=== PATIENT | female | born 1990 | race Two or more races ===

== ENCOUNTER 2024-11-13 11:42 | Outpatient (AMB) | payer MEDICAID, SELFPAY ==
[2024-11-13 11:57] VITALS: BP 112/70; PULSE 68; RESP 17; TEMP 36.7; O2SAT 98; BMI 27.1
--- NOTE | 2024-11-13 11:57 | AMB.OBVISIT ---
Vital Signs 11/13/24 11:57 Height 1.63 m Height Method Stated Weight 71.668 kg Weight Measurement Method Standing Scale BMI 27.1 BP 112/70 Blood Pressure Source Automatic Cuff Blood Pressure Location Right Upper Arm Position Sitting Respiration 17 Pulse 68 Pulse Source Monitor Temp 98.0 F Temp Source Temporal Artery Scan Pulse Oximetry (%) 98 Oxygen Delivery Method Room Air Allergies/Home Meds Allergies & Medications Allergies guava Allergy (Severe, Verified 11/13/24 11:58) Hives bee pollen Allergy (Verified 11/13/24 11:58) Medication Reconciliation prenat.vits,giorgi,kvh-uxsw-pehtf ( Vitamin tablet) 1 tab PO QDAY 02/15/18 [History Confirmed 11/13/24] ferrous sulfate 325 mg (65 mg iron) tablet (iron) 325 mg PO QDAY 05/23/21 [History Confirmed 11/13/24] Intake Visit Data Collection New Patient or Established: Established Patient (seen at [facility] within 3 years) Reason for Visit:: OBI Seen by Clinical Staff ONLY (RN/MA): No 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 Physical Required: No Do You Feel Safe at Home: Yes Authorities Contacted: N/A PCP or OBGYN visit in last 3 months: No Hx Now: Yes Are you currently on any form of Control: No Pain Present Currently: No Pain Scale Used: Rao-Rodas/Numerical Pain scale:: 0 Smoking Status Smoking Status: Never smoker Questionnaires Social History Living Situation History Housing: House Tobacco History Smoking Status: Never smoker Second Hand Smoke Exposure: No Alcohol History Alcohol Intake: Never Domestic Abuse History Do You Feel 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 at Home: Yes 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
--- NOTE | 2024-11-13 12:36 | OBCLNT_ITS ---
Vital Signs 11/13/24 11:57 11/13/24 12:39 Height 1.63 m 1.63 m Height Method Stated Stated Weight 71.668 kg 71.668 kg Weight Measurement Method Standing Scale Standing Scale BMI 27.1 27.1 BP 112/70 112/70 Blood Pressure Source Automatic Cuff Automatic Cuff Blood Pressure Location Right Upper Arm Right Upper Arm Position Sitting Sitting Respiration 17 17 Pulse 68 68 Pulse Source Monitor Monitor Temp 98.0 F 98.0 F Temp Source Temporal Artery Scan Temporal Artery Scan Pulse Oximetry (%) 98 98 Oxygen Delivery Method Room Air Room Air Allergies/Home Meds Allergies & Medications Allergies guava Allergy (Severe, Verified 11/13/24 11:58) Hives bee pollen Allergy (Verified 11/13/24 11:58) Medication Reconciliation prenat.vits,giorgi,lqt-dzuo-tjyyl ( Vitamin tablet) 1 tab PO QDAY 02/15/18 [History Confirmed 11/13/24] ferrous sulfate 325 mg (65 mg iron) tablet (iron) 325 mg PO QDAY 05/23/21 [History Confirmed 11/13/24] Intake Visit Data Collection New Patient or Established: Established Patient (seen at [facility] within 3 years) Reason for Visit:: OBI Seen by Clinical Staff ONLY (RN/MA): No Service Consultant Required: No Do You Feel Safe at Home: Yes Authorities Contacted: N/A PCP or OBGYN visit in last 3 months: No Hx Now: Yes Are you currently on any form of Control: No Pain Present Currently: No Pain Scale Used: Rao-Rodas/Numerical Pain scale:: 0 Smoking Status Smoking Status: Never smoker Questionnaires Covid-19 Vaccine Questionnaire Has patient been vacinated for Covid-19 Have you been vacinated for Covid-19: No PHQ-9 PHQ-2 Over the last 2 weeks, how often have you been bothered by any of the following problems? 1. Little interest or pleasure in doing things: not at all 2. Feeling down, depressed, or hopeless: not at all Total score: 0 PHQ-9 3. Trouble falling or staying asleep, or sleeping too much: Not at all 4. Feeling tired or having little energy: Not at all 5. Poor appetite or overeating: Not at all 6. Feeling bad about yourself - or that you are a failure or have let yourself or your family down: Not at all 7. Trouble concentrating on things, such as reading the newspaper or watching television: Not at all 8. Moving or speaking so slowly that other people could have noticed? - Or the opposite - being so fidgety or restless that you have been moving around a lot more than usual: not at all 9. Thoughts that you would be better off or of hurting yourself in some way: Not at all Total score: 0 If you checked off any problems, how difficult have these problems made it for you to do your work, take care of things at home, or get along with other people?: not difficult at all Source: Developed by Drs. Luis Ramires, Carmen Arroyo, Raymond Ordoñez and colleagues, with an educational parish from [employer]. Depression screen completed yes Social History Living Situation History Marital Status: Lives With: Family Housing: House Tobacco History Smoking Status: Never smoker Second Hand Smoke Exposure: No Alcohol History Alcohol Intake: Never Domestic Abuse History Do You Feel Safe at Home: Yes History of Present Illness HPI Narrative 33 yo for OBI. no Dates/irreg menses. + home test, tires,no N/V. denies existent PMH, denies social habit,no surgery. 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 Past Medical History: No Hx Neurological Disorders, No Hx Breast Cancer, No Hx Cardiac Disorders, No Hx Blood Disorders, Yes Hx Anemia, No Hx Gastrointestinal Disorders, No Hx Renal Disease, No Hx Diabetes Mellitus Type 1 and No Hx Diabetes Mellitus Type 2 OB Initial Visit OB Flowsheet OB Flowsheet Initial Weight: Not Recorded Date -?-?-?-?-?-?--?-?-?-?-?-?- EGA Weight BP Alb Glu CTX Pres Fundal ht FHR Mov Dilation Station Effacement Hx Notes Visit Note 11/13/24 -?-?-?-?-?-?-?-?-?-?-?-?- 9w 6d 71.668 kg 71.668 kg 112/70 112/70 absent unknown 10 145 absent schedule NT scan and sono for dates with mfm. discuss sab precaution, OB panel, NIPT/carrier screen. rtc 4 week obc Menstrual History Menstrual reliability: unknown Flow: normal Menstrual regularity: irregular Monthly: No Age at menarche: 18 On control pills at conception: No OB History : 6 Para: 2 Hx Total # of Abortions (Spontaneous & Elective): 4 # of Living Children: 2 Infection History & Risk Evaluation History of STDs: none HIV risk evaluation: low risk Hepatitis B risk evaluation: low risk Patient or partner has history of Genital Herpes: No Varicella/chicken pox status: unknown Genetic Screening & History Genetic Screening/Teratology Counseling - Includes patient, baby's father, or anyone in either family with: 1. Patient's age 35 years or older as of estimated date of delivery: No 2. Thalassemia (Venezuelan, Guamanian, Mediterranean, or Background); MCV less than 80: No 3. Neural Tube Defect (Meningomyelocele, Spina Bifida, or Anencephaly): No 4. Congenital Heart Defect: No 5. Down Syndrome: No 6. Solitario-Sachs (Ashkenazi Latter-Day, Cajun, Cypriot Bolivian): No 7. An Disease (Ashkenazi Latter-Day): No 8. Familial Dysautonomia (Ashkenazi Latter-Day): No 9. Sickle Cell Disease or Trait (): No 10. Hemophilia or other blood disorders: No 11. Muscular Dystrophy: No 12. Cystic Fibrosis: No 13. [place]'s Chorea: No 14. Mental Retardation/Autism: No 15. Other inherited genetic or chromosomal disorder: No 16. Maternal Metabolic Disorder (EG,TYPE 1 Diabetes, PKU): No 17. Patient or baby's father had a child with defects not listed above: No 18. Recurrent loss or a stillbirth: No 19. Medications (including supplements, vitamins, herbs or otc drugs)/illicit/recreational drugs/alcohol since last menstrual period: No 20. Any other: No Infection History 1. Live with someone with TB or exposed to TB: No 2. Rash or viral illness since last menstrual period: No 3. Hepatitis B,C: No Other (see comments) Source: [employer] Review of Systems Review of Systems Systems Reviewed: All systems reviewed, normal except as documented Exam General Limitations: no limitations General Appearance: alert, in no apparent distress, comfortable, cooperative, healthy appearing, well developed and well groomed Resp Respiratory exam: Present normal lung sounds bilaterally Card Cardiovascular exam: Present regular rate, normal rhythm and normal heart sounds Abdominal Abdominal exam: Present soft and normal bowel sounds Psych Psychiatric exam: Present normal affect and normal mood Office Procedures OB Clinic LOC & Office Proc's Nursing/Assessment Patient Status: Established Patient OB Clinic Nursing Assessment: Medication Reconciliation, Update PMH in EMR and Vital Signs OB Clinic Coordination of Care: Complex Care and Chronic Disease 1-5, Consent,records obtained, informed consent, Education Simp Pt/Fam, Lab and Imaging orders and Staff clarify orders Special Needs: Heart tones Established Patient Charge Established Patient Point Assignment: 130 Established Patient Point Charge: EP Level 4 (120-155) Assessment & Plan Diagnosis / Problem List (1) Encounter for supervision of high risk in first trimester, antepartum: Status: Acute (2) Fundal height low for dates: Status: Acute Qualifiers: Trimester: first trimester Qualified Code(s): O26.841 - Uterine size- date discrepancy, first trimester Plan schedule with MGM for NT scan and dates, OB panel and nipt/carrier screen, hydrate. discuss sab precaution, rtc 4 wk obc Additional Plan Follow Up: 4 Weeks (obc)
[2024-11-13 12:39] VITALS: BP 112/70; PULSE 68; RESP 17; TEMP 36.7; O2SAT 98; BMI 27.1
== END 2024-11-13 12:35 | disposition home or self-care (01) ==
LOC: HODSOBC 11:42
PROVIDERS: Supervising Provider Advanced Practice Midwife; Visit Provider Advanced Practice Midwife
DX: O09.891 Supervision of other high risk pregnancies, first trimester (principal); Z3A.09 9 weeks gestation of pregnancy; O26.841 Uterine size-date discrepancy, first trimester; O09.291 Supervision of pregnancy with other poor reproductive or obstetric history, first trimester
CPT/HCPCS: 99214; G0463

== ENCOUNTER 2024-12-05 08:11 | Outpatient (AMB) | payer MEDICAID, SELFPAY ==
[2024-12-05 08:18] VITALS: BP 118/77; PULSE 75; RESP 17; TEMP 36.5; O2SAT 98; BMI 26.8
--- NOTE | 2024-12-05 08:18 | OBCLNT_ITS ---
Vital Signs 12/05/24 08:18 Height 1.63 m Height Method Stated Weight 71.327 kg Weight Measurement Method Standing Scale BMI 26.8 BP 118/77 Blood Pressure Source Automatic Cuff Blood Pressure Location Right Upper Arm Position Sitting Respiration 17 Pulse 75 Pulse Source Monitor Temp 97.7 F Temp Source Temporal Artery Scan Pulse Oximetry (%) 98 Oxygen Delivery Method Room Air Allergies/Home Meds Allergies & Medications Allergies guava Allergy (Severe, Verified 12/05/24 08:19) Hives bee pollen Allergy (Verified 12/05/24 08:19) Intake Visit Data Collection New Patient or Established: Established Patient (seen at [facility] within 3 years) Reason for Visit:: OBC/LAB RESULTS Seen by Clinical Staff ONLY (RN/MA): No Tv Technician Required: No Do You Feel Safe at Home: Yes Authorities Contacted: N/A PCP or OBGYN visit in last 3 months: Yes Date of Last PCP or OBGYN visit: 11/13/24 Hx Now: Yes Are you currently on any form of Control: No Pain Present Currently: No Pain Scale Used: Rao-Rodas/Numerical Pain scale:: 0 Smoking Status Smoking Status: Never smoker Questionnaires Covid-19 Vaccine Questionnaire Has patient been vacinated for Covid-19 Have you been vacinated for Covid-19: No PHQ-9 PHQ-2 Over the last 2 weeks, how often have you been bothered by any of the following problems? 1. Little interest or pleasure in doing things: not at all 2. Feeling down, depressed, or hopeless: not at all Total score: 0 PHQ-9 3. Trouble falling or staying asleep, or sleeping too much: Not at all 4. Feeling tired or having little energy: Not at all 5. Poor appetite or overeating: Not at all 6. Feeling bad about yourself - or that you are a failure or have let yourself or your family down: Not at all 7. Trouble concentrating on things, such as reading the newspaper or watching television: Not at all 8. Moving or speaking so slowly that other people could have noticed? - Or the opposite - being so fidgety or restless that you have been moving around a lot more than usual: not at all 9. Thoughts that you would be better off or of hurting yourself in some way: Not at all Total score: 0 If you checked off any problems, how difficult have these problems made it for you to do your work, take care of things at home, or get along with other people?: not difficult at all Source: Developed by Drs. Luis Ramires, Carmen Arroyo, Raymond Ordoñez and colleagues, with an educational parish from [employer]. 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 discuss sab precaution, OB panel, NIPT/carrier screen. rtc 4 week obc 12/05/24 -?-?-?-?-?-?-?-?-?-?-?-?- 13w 0d 71.327 kg 118/77 absent unknown 14 145 absent denies sab complaints, no FM no cramps. doing well disc uss + CF screen and gender. OB panel today, sched genetic referal. sab precaution, rtc 4 week [facility] Calculator Estimated Delivery Date Method Current WG Current Estimate 06/12/25 Manual 13w 0d no dates, i rreg menses Notes Visit Date: 12/05/24 Last Updated by: Fartun Londono CNM 12/04: CF+/SMA-, NIPT:neg/male Visit Date: 11/13/24 Last Updated by: Fartun Londono, MAILE 33 yo no dates/irreg menses Office Procedures OB Clinic LOC & Office Proc's Nursing/Assessment Patient Status: Established Patient OB Clinic Nursing Assessment: Medication Reconciliation, Update PMH in EMR and Vital Signs OB Clinic Coordination of Care: Complex Care and Chronic Disease 1-5, Consent,records obtained, informed consent, Education Simp Pt/Fam, Results/Orders obtained and Staff clarify orders Special Needs: Heart tones Established Patient Charge Established Patient Point Assignment: 120 Established Patient Point Charge: EP Level 4 (120-155) Assessment & Plan Diagnosis / Problem List (1) Encounter for supervision of high risk in first trimester, antepartum: Status: Acute Plan Discussed positive CF results. I added genetics referral to her MFM appointment. Patient has an MFM for NT scan December 11. Continue compliance with vitamins. Discussed SAB precautions. Increase fluids and rest. OB panel today. Return in 4 weeks OB check Additional Plan Follow Up: 4 Weeks (obc)
== END 2024-12-05 08:46 | disposition home or self-care (01) ==
LOC: HODSOBC 08:11
PROVIDERS: PCP Advanced Practice Midwife; Referring Provider Advanced Practice Midwife; Supervising Provider Advanced Practice Midwife; Visit Provider Advanced Practice Midwife
DX: O09.891 Supervision of other high risk pregnancies, first trimester (principal); Z3A.13 13 weeks gestation of pregnancy; Z14.1 Cystic fibrosis carrier
CPT/HCPCS: 99214; G0463

== ENCOUNTER 2025-01-02 10:36 | Outpatient (AMB) | payer MEDICAID, SELFPAY ==
[2025-01-02 10:54] VITALS: BP 107/68; PULSE 71; RESP 17; TEMP 36.5; O2SAT 98; BMI 26.9
--- NOTE | 2025-01-02 10:54 | OBCLNT_ITS ---
Vital Signs 01/02/25 10:54 Height 1.63 m Height Method Measured Weight 71.441 kg Weight Measurement Method Standing Scale BMI 26.9 BP 107/68 Blood Pressure Source Automatic Cuff Blood Pressure Location Right Upper Arm Position Sitting Respiration 17 Pulse 71 Pulse Source Monitor Temp 97.7 F Temp Source Temporal Artery Scan Pulse Oximetry (%) 98 Oxygen Delivery Method Room Air Allergies/Home Meds Allergies & Medications Allergies guava Allergy (Severe, Verified 01/02/25 10:56) Hives bee pollen Allergy (Verified 01/02/25 10:56) Medication Reconciliation prenat.vits,giorgi,pcz-paqh-jxjxi ( Vitamin tablet) 1 tab PO QDAY 02/15/18 [History Confirmed 01/02/25] ferrous sulfate 325 mg (65 mg iron) tablet (iron) 325 mg PO QDAY 05/23/21 [History Confirmed 01/02/25] Intake Visit Data Collection New Patient or Established: Established Patient (seen at [facility] within 3 years) Reason for Visit:: OBC Consent obtained for Telemed Visit: No Seen by Clinical Staff ONLY (RN/MA): No Associate Research Scientist Required: No Do You Feel Safe at Home: Yes Authorities Contacted: N/A PCP or OBGYN visit in last 3 months: Yes Date of Last PCP or OBGYN visit: 12/05/24 Hx Now: Yes Are you currently on any form of Control: No Pain Present Currently: No Pain Scale Used: Rao-Rodas/Numerical Pain scale:: 0 Smoking Status Smoking Status: Never smoker Questionnaires Covid-19 Vaccine Questionnaire Has patient been vacinated for Covid-19 Have you been vacinated for Covid-19: No PHQ-9 PHQ-2 Over the last 2 weeks, how often have you been bothered by any of the following problems? 1. Little interest or pleasure in doing things: not at all PHQ-9 8. Moving or speaking so slowly that other people could have noticed? - Or the opposite - being so fidgety or restless that you have been moving around a lot more than usual: not at all Source: Developed by Drs. Luis Ramires, Carmen Arroyo, Raymond Ordoñez and colleagues, with an educational parish from [email or web address]. 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 discuss sab precaution, OB panel, NIPT/carrier screen. rtc 4 week obc 12/05/24 -?-?-?-?-?-?-?-?-?-?-?-?- 14w 6d 71.327 kg 118/77 absent unknown 14 145 absent denies sab complaints, no FM no cramps. doing well disc uss + CF screen and gender. OB panel today, sched genetic referal. sab precaution, rtc 4 week 01/02/25 -?-?-?-?-?-?-?-?-?-?-?-?- 18w 6d 71.441 kg 107/68 absent unknown 18 145 absent No OB complaints. Doing well. Baby is active. Maternal- medicine appointment is January 04. aFP today. Schedule genetics referral. Discussed with father the baby getting the cystic fibrosis screen. SAB precautions and return in 4 weeks OB to [facility]AT[facility] Calculator Estimated Delivery Date Method Current WG Current Estimate 05/30/25 Ultrasound #1 18w 6d Other Estimates 06/12/25 Manual 17w 0d no dates, ir reg menses Notes Visit Date: 01/02/25 Last Updated by: Fartun Londono, MAILE 34 yo . no dates. sono: 12/11/24: 15w5. EDC: 05/30/25. OB panel: O+,abs-, RPR::NR, rub imm, HBSAG-,HIV-,HC-, GX/CT-, , A1: 5.5 Visit Date: 12/05/24 Last Updated by: Fartun Londono CNM 12/04: CF+/SMA-, NIPT:neg/male Visit Date: 11/13/24 Last Updated by: Fartun Londono CNM 33 yo no dates/irreg menses Office Procedures OB Clinic LOC & Office Proc's Nursing/Assessment Patient Status: Established Patient OB Clinic Nursing Assessment: Medication Reconciliation, Update PMH in EMR and Vital Signs OB Clinic Coordination of Care: Complex Care and Chronic Disease 1-5, Consent,records obtained, informed consent, Education Simp Pt/Fam and 4+ Authorizations needed Special Needs: Heart tones Established Patient Charge Established Patient Point Assignment: 130 Established Patient Point Charge: EP Level 4 (120-155) Assessment & Plan Diagnosis / Problem List (1) Encounter for supervision of normal first , second trimester: Status: Acute Plan Father the baby will get cystic fibrosis screen. Maternal- medicine appointment is January 04. Discussed SAB precautions. aFP today. Return in 4 weeks OB check Additional Plan Follow Up: 4 Weeks (obc)
== END 2025-01-02 11:22 | disposition home or self-care (01) ==
LOC: HODSOBC 10:36
PROVIDERS: Supervising Provider Advanced Practice Midwife; Visit Provider Advanced Practice Midwife
DX: Z34.02 Encounter for supervision of normal first pregnancy, second trimester (principal); Z3A.18 18 weeks gestation of pregnancy
CPT/HCPCS: 99214; G0463

== ENCOUNTER 2025-02-03 14:49 | Outpatient (AMB) | payer MEDICAID, SELFPAY ==
--- NOTE | 2025-02-03 15:04 | OBCLNT_ITS ---
Vital Signs 02/03/25 15:05 Height 1.63 m Height Method Stated Weight 73.709 kg Weight Measurement Method Standing Scale BMI 27.7 BP 111/65 Blood Pressure Source Automatic Cuff Blood Pressure Location Left Upper Arm Position Sitting Respiration 16 Pulse 74 Pulse Source Monitor Temp 97.2 F Temp Source Oral Pulse Oximetry (%) 98 Oxygen Delivery Method Room Air Allergies/Home Meds Allergies & Medications Allergies guava Allergy (Severe, Verified 02/03/25 15:05) Hives bee pollen Allergy (Verified 02/03/25 15:05) Medication Reconciliation prenat.vits,giorgi,acu-crbv-rvhom ( Vitamin tablet) 1 tab PO QDAY 02/15/18 [History Confirmed 02/03/25] ferrous sulfate 325 mg (65 mg iron) tablet (iron) 325 mg PO QDAY 05/23/21 [History Confirmed 02/03/25] Intake Visit Data Collection New Patient or Established: Established Patient (seen at [facility] within 3 years) Reason for Visit:: OBC Seen by Clinical Staff ONLY (RN/MA): No Water Safety Teacher Required: No Do You Feel Safe at Home: Yes Authorities Contacted: N/A PCP or OBGYN visit in last 3 months: Yes Date of Last PCP or OBGYN visit: 01/02/25 Hx Now: Yes Are you currently on any form of Control: No Pain Present Currently: No Pain Scale Used: Rao-Rodas/Numerical Pain scale:: 0 Smoking Status Smoking Status: Never smoker Questionnaires Covid-19 Vaccine Questionnaire Has patient been vacinated for Covid-19 Have you been vacinated for Covid-19: No PHQ-9 PHQ-2 Over the last 2 weeks, how often have you been bothered by any of the following problems? 1. Little interest or pleasure in doing things: not at all 2. Feeling down, depressed, or hopeless: not at all Total score: 0 PHQ-9 3. Trouble falling or staying asleep, or sleeping too much: Not at all 4. Feeling tired or having little energy: Not at all 5. Poor appetite or overeating: Not at all 6. Feeling bad about yourself - or that you are a failure or have let yourself or your family down: Not at all 7. Trouble concentrating on things, such as reading the newspaper or watching television: Not at all 8. Moving or speaking so slowly that other people could have noticed? - Or the opposite - being so fidgety or restless that you have been moving around a lot more than usual: not at all 9. Thoughts that you would be better off or of hurting yourself in some way: Not at all Total score: 0 If you checked off any problems, how difficult have these problems made it for you to do your work, take care of things at home, or get along with other p eople?: not difficult at all Source: Developed by Drs. Luis Ramires, Carmen Arroyo, Raymond Ordoñez and colleagues, with an educational parish from [employer]. 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 discuss sab precaution, OB panel, NIPT/carrier screen. rtc 4 week obc 12/05/24 -?-?-?-?-?-?-?-?-?-?-?-?- 14w 6d 71.327 kg 118/77 absent unknown 14 145 absent denies sab complaints, no FM no cramps. doing well disc uss + CF screen and gender. OB panel today, sched genetic referal. sab precaution, rtc 4 week 01/02/25 -?-?-?-?-?-?-?-?-?-?-?-?- 18w 6d 71.441 kg 107/68 absent unknown 18 145 absent No OB complaints. Doing well. Baby is active. Maternal- medicine appointment is January 04. aFP today. Schedule genetics referral. Discussed with father the baby getting the cystic fibrosis screen. SAB precautions and return in 4 weeks OB to 02/03/25 -?-?-?-?-?-?-?-?-?-?-?-?- 23w 3d 73.709 kg 111/65 absent unknown 23 135 active Denies OB complaints. Reports good movement. Denies bleeding, contractions, leaking Discussed AFP today. Genetics appointment for positive carrier screen is pending. Third trimester labs ordered WATSON Calculator Estimated Delivery Date Method Current WG Current Estimate 05/30/25 Ultrasound #1 23w 3d Other Estimates 05/30/25 Ultrasound #2 23w 3d 06/12/25 Manual 21w 4d no dates, irreg menses, final watson: 05/30/25 Notes Visit Date: 01/02/25 Last Updated by: Fartun Londono CNM 34 yo . no dates. sono: 12/11/24: 15w5. EDC: 05/30/25. OB panel: O+,abs-, RPR::NR, rub imm, HBSAG-,HIV-,HC-, GX/CT-, , A1: 5.5 Visit Date: 12/05/24 Last Updated by: Fartun Londono CNM 12/04: CF+/SMA-, NIPT:neg/male Visit Date: 11/13/24 Last Updated by: Fartun Londono CNM 33 yo no dates/irreg menses Office Procedures OB Clinic LOC & Office Proc's Nursing/Assessment Patient Status: Established Patient OB Clinic Nursing Assessment: Medication Reconciliation, Update PMH in EMR and V ital Signs OB Clinic Coordination of Care: Education Complex Pt/Fam, Consent,records obtained, informed consent, Lab and Imaging orders, Results/Orders obtained and Staff clarify orders Special Needs: Heart tones Established Patient Charge Established Patient Point Assignment: 115 Established Patient Point Charge: EP Level 3 (80-115) Assessment & Plan Diagnosis / Problem List (1) Encounter for supervision of normal first , second trimester: Status: Acute (2) High risk , antepartum: Status: Acute Plan Third trimester labs today 2. Discussed AFP. MFM appointment and genetic screening for positive CF is pending. Discussed labor precautions. Increase fluids. Return in 4 weeks OB check Additional Plan Follow Up: 4 Weeks (obc)
[2025-02-03 15:05] VITALS: BP 111/65; PULSE 74; RESP 16; TEMP 36.2; O2SAT 98; BMI 27.7
== END 2025-02-03 15:29 | disposition home or self-care (01) ==
LOC: HODSOBC 14:49
PROVIDERS: Supervising Provider Advanced Practice Midwife; Visit Provider Advanced Practice Midwife
DX: O09.892 Supervision of other high risk pregnancies, second trimester (principal); O28.5 Abnormal chromosomal and genetic finding on antenatal screening of mother; Z3A.23 23 weeks gestation of pregnancy; Z91.030 Bee allergy status; Z91.018 Allergy to other foods
CPT/HCPCS: 99213; G0463

== ENCOUNTER 2025-03-03 14:38 | Outpatient (AMB) | payer MEDICAID, SELFPAY ==
[2025-03-03 14:49] VITALS: BP 118/75; PULSE 71; RESP 17; TEMP 36.6; O2SAT 98; BMI 27.9
--- NOTE | 2025-03-03 14:49 | AMB.OBVISIT ---
Vital Signs 03/03/25 14:49 Height 1.63 m Height Method Stated Weight 74.162 kg Weight Measurement Method Standing Scale BMI 27.9 BP 118/75 Blood Pressure Source Automatic Cuff Blood Pressure Location Right Upper Arm Position Sitting Respiration 17 Pulse 71 Pulse Source Monitor Temp 97.8 F Temp Source Temporal Artery Scan Pulse Oximetry (%) 98 Oxygen Delivery Method Room Air Allergies/Home Meds Allergies & Medications Allergies guava Allergy (Severe, Verified 03/03/25 14:49) Hives bee pollen Allergy (Verified 03/03/25 14:49) Medication Reconciliation prenat.vits,giorgi,zxl-afzt-rzxde ( Vitamin tablet) 1 tab PO QDAY 02/15/18 [History Confirmed 03/03/25] ferrous sulfate 325 mg (65 mg iron) tablet (iron) 325 mg PO QDAY 05/23/21 [History Confirmed 03/03/25] Intake Visit Data Collection New Patient or Established: New Patient not seen in past 3 years at [facility] (considered New) Reason for Visit:: OBC Seen by Clinical Staff ONLY (RN/MA): No Net Front End Developer Required: No Do You Feel Safe at Home: Yes Authorities Contacted: N/A PCP or OBGYN visit in last 3 months: Yes Date of Last PCP or OBGYN visit: 02/03/25 Hx Now: Yes Are you currently on any form of Control: No Pain Present Currently: Yes Pain Location: Abdomen Pain Scale Used: Rao-Rodas/Numerical Pain scale:: 1 Smoking Status Smoking Status: Never smoker Questionnaires Covid-19 Vaccine Questionnaire Has patient been vacinated for Covid-19 Have you been vacinated for Covid-19: No PHQ-9 PHQ-2 Over the last 2 weeks, how often have you been bothered by any of the following problems? 1. Little interest or pleasure in doing things: not at all 2. Feeling down, depressed, or hopeless: not at all Total score: 0 PHQ-9 3. Trouble falling or staying asleep, or sleeping too much: Not at all 4. Feeling tired or having little energy: Not at all 5. Poor appetite or overeating: Not at all 6. Feeling bad about yourself - or that you are a failure or have let yourself or your family down: Not at all 7. Trouble concentrating on things, such as reading the newspaper or watching television: Not at all 8. Moving or speaking so slowly that other people could have noticed? - Or the opposite - being so fidgety or restless that you have been moving around a lot more than usual: not at all 9. Thoughts that you would be better off or of hurting yourself in some way: Not at all Total score: 0 If you checked off any problems, how difficult have these problems made it for you to do your work, take care of things at home, or get along with other people?: not difficult at all Source: Developed by Drs. Luis Ramires, Carmen Arroyo, Raymond Ordoñez and colleagues, with an educational parish from [employer]. 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 discuss sab precaution, OB panel, NIPT/carrier screen. rtc 4 week obc 12/05/24 <del>?</del> 14w 6d 71.327 kg 118/77 absent unknown 14 145 absent denies sab complaints, no FM no cramps. doing well discuss + CF screen and gender. OB panel today, sched genetic referal. sab precaution, rtc 4 week 01/02/25 <del>?</del> 18w 6d 71.441 kg 107/68 absent unknown 18 145 absent No OB complaints. Doing well. Baby is active. Maternal- medicine appointment is January 04. aFP today. Schedule genetics referral. Discussed with father the baby getting the cystic fibrosis screen. SAB precautions and return in 4 weeks OB to 02/03/25 <del>?</del> 23w 3d 73.709 kg 111/65 absent unknown 23 135 active Denies OB complaints. Reports good movement. Denies bleeding, contractions, leaking Discussed AFP today. Genetics appointment for positive carrier screen is pending. Third trimester labs ordered 03/03/25 <del>?</del> 27w 3d 74.162 kg 118/75 absent unknown 27 135 active Denies OB complaints. No leaking, no bleeding, current cramping. Maternal- medicine appointment in April. But that is patient did not do 1 hour GTT Advised patient to get. 1 hour GTT.. Discussed labor precautions. Follow-up maternal medicine appointment May 22. Continue prenatals. Return in 3 weeks OB check WATSON Calculator Estimated Delivery Date Method Current WG Current Estimate 05/30/25 Ultrasound #1 27w 3d Other Estimates 05/30/25 Ultrasound #2 27w 3d 06/12/25 Manual 25w 4d no dates, irreg menses, final watson: 05/30/25 Notes Visit Date: 01/02/25 Last Updated by: Fartun Londono CNM 34 yo . no dates. sono: 12/11/24: 15w5. EDC: 05/30/25. OB panel: O+,abs-, RPR::NR, rub imm, HBSAG-,HIV-,HC-, GX/CT-, /, A1: 5.5 Visit Date: 12/05/24 Last Updated by: Fartun Londono CNM 12/04: CF+/SMA-, NIPT:neg/male Visit Date: 11/13/24 Last Updated by: Fartun Londono CNM 33 yo no dates/irreg menses Office Procedures OBC Clinic LOC & Office Proc's Nursing/Assessment Patient Status: Established Patient OB Clinic Nursing Assessment: Medication Reconciliation, Update PMH in EMR and Vital Signs OB Clinic Coordination of Care: Complex Care and Chronic Disease 1-5, Education Complex Pt/Fam, Consent,records obtained, informed consent and Staff clarify orders Special Needs: Heart tones Established Patient Charge Established Patient Point Assignment: 120 Established Patient Point Charge: EP Level 4 (120-155) Assessment & Plan Diagnosis / Problem List (1) Encounter for supervision of high risk in second trimester, antepartum: Status: Acute Plan And then the last 1 that advised patient to get her 1 hour Glucola. Discussed labor precautions. Increase fluids. Continue prenatals. And follow-up with MFM in April. Return in 3 weeks OB check Additional Plan Follow Up: 3 Weeks (obc)
== END 2025-03-03 15:31 | disposition home or self-care (01) ==
LOC: HODSOBC 14:38
PROVIDERS: Supervising Provider Advanced Practice Midwife; Visit Provider Advanced Practice Midwife
DX: O09.92 Supervision of high risk pregnancy, unspecified, second trimester (principal); Z3A.27 27 weeks gestation of pregnancy; Z91.030 Bee allergy status; Z91.018 Allergy to other foods
CPT/HCPCS: 99214; G0463

== ENCOUNTER 2025-03-31 15:03 | Outpatient (AMB) | payer MEDICAID, SELFPAY ==
[2025-03-31 15:09] VITALS: PULSE 78; RESP 18; TEMP 36.6; O2SAT 97; BMI 28.0
--- NOTE | 2025-03-31 15:09 | AMB.OBVISIT ---
Vital Signs 03/31/25 15:09 Height 1.63 m Height Method Stated Weight 74.446 kg Weight Measurement Method Standing Scale BMI 28.0 Blood Pressure Source Automatic Cuff Blood Pressure Location Right Upper Arm Position Sitting Respiration 18 Pulse 78 Pulse Source Monitor Temp 97.8 F Temp Source Temporal Artery Scan Pulse Oximetry (%) 97 Oxygen Delivery Method Room Air Allergies/Home Meds Allergies & Medications Allergies guava Allergy (Severe, Verified 03/31/25 15:09) Hives bee pollen Allergy (Verified 03/31/25 15:09) Medication Reconciliation prenat.vits,giorgi,[id number] ( Vitamin tablet) 1 tab PO QDAY 02/15/18 [History Confirmed 03/31/25] ferrous sulfate 325 mg (65 mg iron) tablet (iron) 325 mg PO QDAY 05/23/21 [History Confirmed 03/31/25] Intake Visit Data Collection New Patient or Established: Established Patient (seen at [facility] within 3 years) Reason for Visit:: OBC Seen by Clinical Staff ONLY (RN/MA): No Facility Maintenance Technician Required: No Do You Feel Safe at Home: Yes Authorities Contacted: N/A PCP or OBGYN visit in last 3 months: Yes Date of Last PCP or OBGYN visit: 03/03/25 Hx Now: Yes Are you currently on any form of Control: No Pain Present Currently: No Pain Scale Used: Rao-Rodas/Numerical Pain scale:: 0 Smoking Status Smoking Status: Never smoker Immunizations Flu Vaccine in the Last 12 Months: No Flu Vaccine Exclusion Criteria: No Exclusion Criteria Questionnaires Covid-19 Vaccine Questionnaire Has patient been vacinated for Covid-19 Have you been vacinated for Covid-19: No PHQ-9 PHQ-2 Over the last 2 weeks, how often have you been bothered by any of the following problems? 1. Little interest or pleasure in doing things: not at all 2. Feeling down, depressed, or hopeless: not at all Total score: 0 PHQ-9 3. Trouble falling or staying asleep, or sleeping too much: Not at all 4. Feeling tired or having little energy: Not at all 5. Poor appetite or overeating: Not at all 6. Feeling bad about yourself - or that you are a failure or have let yourself or your family down: Not at all 7. Trouble concentrating on things, such as reading the newspaper or watching television: Not at all 8. Moving or speaking so slowly that other people could have noticed? - Or the opposite - being so fidgety or restless that you have been moving around a lot more than usual: not at all 9. Thoughts that you would be better off or of hurting yourself in some way: Not at all Total score: 0 If you checked off any problems, how difficult have these problems made it for you to do your work, take care of things at home, or get along with other people?: not difficult at all Source: Developed by Drs. Luis Ramires, Carmen Arroyo, Raymond Ordoñez and colleagues, with an educational parish from [employer]. 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 discuss sab precaution, OB panel, NIPT/carrier screen. rtc 4 week obc 12/05/24 <del>?</del> 14w 6d 71.327 kg 118/77 absent unknown 14 145 absent denies sab complaints, no FM no cramps. doing well discuss + CF screen and gender. OB panel today, sched genetic referal. sab precaution, rtc 4 week 01/02/25 <del>?</del> 18w 6d 71.441 kg 107/68 absent unknown 18 145 absent No OB complaints. Doing well. Baby is active. Maternal- medicine appointment is January 04. aFP today. Schedule genetics referral. Discussed with father the baby getting the cystic fibrosis screen. SAB precautions and return in 4 weeks OB to 02/03/25 <del>?</del> 23w 3d 73.709 kg 111/65 absent unknown 23 135 active Denies OB complaints. Reports good movement. Denies bleeding, contractions, leaking Discussed AFP today. Genetics appointment for positive carrier screen is pending. Third trimester labs ordered 03/03/25 <del>?</del> 27w 3d 74.162 kg 118/75 absent unknown 27 135 active Denies OB complaints. No leaking, no bleeding, current cramping. Maternal- medicine appointment in April. But that is patient did not do 1 hour GTT Advised patient to get. 1 hour GTT.. Discussed labor precautions. Follow-up maternal medicine appointment May 22. Continue prenatals. Return in 3 weeks OB check 03/31/25 <del>?</del> 31w 3d 74.446 kg absent transverse 30 145 active No OB complaints noted. Reports good movement. Denies leaking, bleeding, contractions patient has MFM appointment April 28 Discussed third trimester labs and they are all normal. Discussed labor precautions. Patient declined Tdap today. Keep maternal- medicine April 28 and return in 2 weeks OB check WATSON Calculator Estimated Delivery Date Method Current WG Current Estimate 05/30/25 Ultrasound #1 31w 3d Other Estimates 05/30/25 Ultrasound #2 31w 3d 06/12/25 Manual 29w 4d no dates, irreg menses, final watson: 05/30/25 Notes Visit Date: 03/31/25 Last Updated by: Fartun Londono CNM 03/31/25: 3rd tri lab wnl. O+/ABS- Visit Date: 01/02/25 Last Updated by: Fartun Londono CNM 34 yo . no dates. sono: 12/11/24: 15w5. EDC: 05/30/25. OB panel: O+,abs-, RPR::NR, rub imm, HBSAG-,HIV-,HC-, GX/CT-, , A1: 5.5 Visit Date: 12/05/24 Last Updated by: Fartun Londono CNM 12/04: CF+/SMA-, NIPT:neg/male Visit Date: 11/13/24 Last Updated by: Fartun Londono CNM 33 yo no dates/irreg menses Office Procedures OBC Clinic LOC & Office Proc's Nursing/Assessment Patient Status: Established Patient OB Clinic Nursing Assessment: Medication Reconciliation, Update PMH in EMR and Vital Signs OB Clinic Coordination of Care: Complex Care and Chronic Disease 1-5, Education Complex Pt/Fam, Consent,records obtained, informed consent and Staff clarify orders Special Needs: Heart tones Established Patient Charge Established Patient Point Assignment: 120 Established Patient Point Charge: EP Level 4 (120-155) Assessment & Plan Diagnosis / Problem List (1) Encounter for supervision of high risk in third trimester, antepartum: Status: Acute Plan Keep appointment with [facility] April 28. Discussed labor precautions and kick count. Patient declined Tdap. Reviewed third trimester labs. Return in 2 weeks OB check Additional Plan Follow Up: 2 Weeks (obc)
== END 2025-03-31 15:23 | disposition home or self-care (01) ==
LOC: HODSOBC 15:03
PROVIDERS: Supervising Provider Advanced Practice Midwife; Visit Provider Advanced Practice Midwife
DX: O09.93 Supervision of high risk pregnancy, unspecified, third trimester (principal); Z3A.31 31 weeks gestation of pregnancy; Z28.21 Immunization not carried out because of patient refusal; Z91.030 Bee allergy status; Z91.018 Allergy to other foods
CPT/HCPCS: 99214; G0463

== ENCOUNTER 2025-04-22 09:59 | Outpatient (AMB) | payer MEDICAID, SELFPAY ==
--- NOTE | 2025-04-22 10:19 | OBCLNT_ITS ---
Vital Signs 04/22/25 10:20 Height 1.63 m Height Method Stated Weight 74.389 kg Weight Measurement Method Standing Scale BMI 28.0 BP 108/74 Blood Pressure Source Automatic Cuff Blood Pressure Location Left Upper Arm Position Sitting Respiration 14 Pulse 67 Pulse Source Monitor Temp 97.6 F Temp Source Oral Pulse Oximetry (%) 99 Oxygen Delivery Method Room Air Allergies/Home Meds Allergies & Medications Allergies guava Allergy (Severe, Verified 04/22/25 10:21) Hives bee pollen Allergy (Verified 04/22/25 10:21) Medication Reconciliation prenat.vits,giorgi,cbd-wspi-iipqw ( Vitamin tablet) 1 tab PO QDAY 02/15/18 [History Confirmed 04/22/25] ferrous sulfate 325 mg (65 mg iron) tablet (iron) 325 mg PO QDAY 05/23/21 [History Confirmed 04/22/25] Immunizations Immunizations Flu Vaccine in the Last 12 Months: Yes Date of most recent flu vaccination: 04/22/25 Flu Vaccine Exclusion Criteria: Already Received Care OB Visit Log OB Flowsheet Initial Weight: Not Recorded Date -?-?-?-?-?-?-?-?-?-?-?-?- EGA Weight BP Alb Glu CTX Pres Fundal ht FHR Mov Dilation Station Effacement Hx Notes Visit Note 11/13/24 -?-?-?-?-?-?-?-?-?-?-?-?- 11w 5d 71.668 kg 71.668 kg 112/70 112/70 absent unknown 10 145 absent schedule NT scan and sono for dates w ith mfm. discuss sab precaution, OB panel, NIPT/carrier screen. rtc 4 week obc 12/05/24 -?-?-?-?-?-?-?-?-?-?-?-?- 14w 6d 71.327 kg 118/77 absent unknown 14 145 absent denies sab complaints, no FM no cramps. doing well disc uss + CF screen and gender. OB panel today, sched genetic referal. sab precaution, rtc 4 week 01/02/25 -?-?-?-?-?-?-?-?-?-?-?-?- 18w 6d 71.441 kg 107/68 absent unknown 18 145 absent No OB complaints. Doing well. Baby is active. Maternal- medicine appointment is January 04. aFP today. Schedule genetics referral. Discussed with father the baby getting the cystic fibrosis screen. SAB precautions and return in 4 weeks OB to 02/03/25 -?-?-?-?-?-?-?-?-?-?-?-?- 23w 3d 73.709 kg 111/65 absent unknown 23 135 active Denies OB complaints. Reports good movement. Denies bleeding, contractions, leaking Discussed AFP today. Genetics appointment for positive carrier screen is pending. Third trimester labs ordered 03/03/25 -?-?-?-?-?-?-?-?-?-?-?-?- 27w 3d 74.162 kg 118/75 absent unknown 27 135 active Denies OB complaints. No leaking, no bleeding, current cramping. Maternal- medicine appointment in April. But that is patient did not do 1 hour GTT Advised patient to get. 1 hour GTT.. Discussed labor precautions. Follow-up maternal medicine appointment May 22. Continue prenatals. Return in 3 weeks OB check 03/31/25 -?-?-?-?-?-?-?-?-?-?-?-?- 31w 3d 74.446 kg absent transverse 30 145 active No OB complaints noted. Reports good movement. Denies leaking, bleeding, contractions patient has MFM appointment April 28 Discu ssed third trimester labs and they are all normal. Discussed labor precautions. Patient declined Tdap today. Keep maternal- medicine April 28 and return in 2 weeks OB check 04/22/25 -?-?-?-?-?-?-?-?-?-?-?-?- 34w 4d 74.389 kg 108/74 absent cephalic 34 145 active No OB complaints. Reports good movement. Denies leaking, bleeding, contractions mfm 04/28 mfm 04/28. Discussed labor p recautions. Kick count twice a day. Increase fluids and continue prenatals and return in a week. GBS next visit WATSON Calculator Estimated Delivery Date Method Current WG Current Estimate 05/30/25 Ultrasound #1 34w 4d Other Estimates 05/30/25 Ultrasound #2 34w 4d 05/30/25 Manual 34w 4d no dates, irreg menses, final watson: 05/30/25 Notes Visit Date: 03/31/25 Last Updated by: Fartun Londono CNM 03/31/25: 3rd tri lab wnl. O+/ABS- Visit Date: 01/02/25 Last Updated by: Fartun Londono CNM 34 yo . no dates. sono: 12/11/24: 15w5. EDC: 05/30/25. OB panel: O+,abs-, RPR::NR, rub imm, HBSAG-,HIV-,HC-, GX/CT-, , A1: 5.5 Visit Date: 12/05/24 Last Updated by: Fartun Londono CNM 12/04: CF+/SMA-, NIPT:neg/male Visit Date: 11/13/24 Last Updated by: Fartun Londono CNM 33 yo no dates/irreg menses Office Procedures OBC Clinic LOC & Office Proc's Nursing/Assessment Patient Status: Established Patient OB Clinic Nursing Assessment: Medication Reconciliation, Update PMH in EMR and Vital Signs OB Clinic Coordination of Care: Complex Care and Chronic Disease 1-5, Consent,records obtained, informed consent, Education Simp Pt/Fam, 1 Ins Authorization, Lab and Imaging orders, Results/Orders obtained and Staff clarify orders Special Needs: Heart tones Established Patient Charge Established Patient Point Assignment: 150 Established Patient Point Charge: EP Level 4 (120-155) Injection/Vaccine Admin SQ Im Injection: Yes Immunizations flu vac ts (6mos up)-PF 45 mcg(15mcg x3)/0.5 mL IM syringe Performing Provider: Fartun Londono CNM Performing Location: [facility] Administered by: Missy oCbian MA on 04/22/25 12:03 Dose Route Admin Location Dispensed Lot Number Expiration Date Pack age [facility] Clerk Supervisor 0.5 mL IM Left Deltoid 0.5 mL [id number] 11/25/25 19985-467-93 [id number] Harri VIS Given Date VIS Provided VIS Publication Date 04/22/25 Single Vaccine 24 Eligibility Eligibility Date Funding Source Public Non-[facility] Assessment & Plan Diagnosis / Problem List (1) Encounter for supervision of high risk in third trimester, antepartum: Status: Acute Plan GBS next visit. Patient has MFM appointment April 28. Discussed labor precautions. Kick count twice a day. Continue prenatals return week OB check Additional Plan Follow Up: 1 Week (obc)
[2025-04-22 10:20] VITALS: BP 108/74; PULSE 67; RESP 14; TEMP 36.4; O2SAT 99; BMI 28.0
== END 2025-04-22 11:50 | disposition home or self-care (01) ==
LOC: HODSOBC 09:59
PROVIDERS: Supervising Provider Advanced Practice Midwife; Visit Provider Advanced Practice Midwife
DX: O09.93 Supervision of high risk pregnancy, unspecified, third trimester (principal); Z3A.34 34 weeks gestation of pregnancy; Z23 Encounter for immunization; Z91.030 Bee allergy status; Z91.018 Allergy to other foods
CPT/HCPCS: 90471; 90686; 96372; 99214; G0463; J9060

== ENCOUNTER 2025-04-29 08:18 | Outpatient (AMB) | payer MEDICAID, SELFPAY ==
[2025-04-29 08:36] VITALS: BP 116/64; PULSE 64; RESP 14; TEMP 36.3; O2SAT 98; BMI 28.2
--- NOTE | 2025-04-29 08:36 | OBCLNT_ITS ---
Vital Signs 04/29/25 08:36 Height 1.63 m Height Method Stated Weight 75.013 kg Weight Measurement Method Standing Scale BMI 28.2 BP 116/64 Blood Pressure Source Automatic Cuff Blood Pressure Location Left Upper Arm Position Sitting Respiration 14 Pulse 64 Pulse Source Monitor Temp 97.4 F Temp Source Oral Pulse Oximetry (%) 98 Oxygen Delivery Method Room Air Allergies/Home Meds Allergies & Medications Allergies guava Allergy (Severe, Verified 04/29/25 08:37) Hives bee pollen Allergy (Verified 04/29/25 08:37) Medication Reconciliation prenat.vits,giorgi,lln-taha-gebol ( Vitamin tablet) 1 tab PO QDAY 02/15/18 [History Confirmed 04/29/25] ferrous sulfate 325 mg (65 mg iron) tablet (iron) 325 mg PO QDAY 05/23/21 [History Confirmed 04/29/25] Immunizations Immunizations Flu Vaccine in the Last 12 Months: Yes Flu Vaccine Exclusion Criteria: Already Received Care OB Visit Log OB Flowsheet Initial Weight: Not Recorded Date -?-?-?-?-?-?-?-?-?-?-?-?- EGA Weight BP Alb Glu CTX Pres Fundal ht FHR Mov Dilation Station Effacement Hx Notes Visit Note 11/13/24 -?-?-?-?-?-?-?-?-?-?-?-?- 11w 5d 71.668 kg 71.668 kg 112/70 112/70 absent unknown 10 145 absent schedule NT scan and sono for dates with mfm. discuss sab precaution, OB panel, NIPT/carrier screen. rtc 4 week obc 12/05/24 -?-?-?-?-?-?-?-?-?-?-?-?- 14w 6d 71.327 kg 118/77 absent unknown 14 145 absent denies sab complaints, no FM no cramps. doing well disc uss + CF screen and gender. OB panel today, sched genetic referal. sab precaution, rtc 4 week 01/02/25 -?-?-?-?-?-?-?-?-?-?-?-?- 18w 6d 71.441 kg 107/68 absent unknown 18 145 absent No OB complaints. Doing well. Baby is active. Maternal- medicine appointment is January 04. aFP today. Schedule genetics referral. Discussed with father the baby getting the cystic fibrosis screen. SAB precautions and return in 4 weeks OB to 02/03/25 -?-?-?-?-?-?-?-?-?-?-?-?- 23w 3d 73.709 kg 111/65 absent unknown 23 135 active Denies OB complaints. Reports good movement. Denies bleeding, contractions, leaking Discussed AFP today. Genetics appointment for positive carrier screen is pending. Third trimester labs ordered 03/03/25 -?-?-?-?-?-?-?-?-?-?-?-?- 27w 3d 74.162 kg 118/75 absent unknown 27 135 active Denies OB complaints. No leaking, no bleeding, current cramping. Maternal- medicine appointment in April. But that is patient did not do 1 hour GTT Advised patient to get. 1 hour GTT.. Discussed labor precautions. Follow-up maternal medicine appointment May 22. Continue prenatals. Return in 3 weeks OB check 03/31/25 -?-?-?-?-?-?-?-?-?-?-?-?- 31w 3d 74.446 kg absent transverse 30 145 active No OB complaints noted. Reports good movement. Denies leaking, bleeding, contractions patient has MFM appointment April 28 Discu ssed third trimester labs and they are all normal. Discussed labor precautions. Patient declined Tdap today. Keep maternal- medicine April 28 and return in 2 weeks OB check 04/22/25 -?-?-?-?-?-?-?-?-?-?-?-?- 34w 4d 74.389 kg 108/74 absent cephalic 34 145 active No OB complaints. Reports good movement. Denies leaking, bleeding, contractions mfm 04/28 mfm 04/28. Discussed labor p recautions. Kick count twice a day. Increase fluids and continue prenatals and return in a week. GBS next visit 04/29/25 -?-?-?-?-?-?-?-?-?-?-?-?- 35w 4d 75.013 kg 116/64 absent cephalic 35 145 active No OB complaints. Reports good movement. Denies leaking, bleeding, contractions Discussed OB sono. Kick count twice a day reviewed GBS today. Discussed labor precautions. Return in 2 weeks OB check WATSON Calculator Estimated Delivery Date Method Current WG Current Estimate 05/30/25 Ultrasound #1 35w 4d Other Estimates 05/30/25 Ultrasound #2 35w 4d 05/30/25 Manual 35w 4d no dates, irreg menses, final watson: 05/30/25, Notes Visit Date: 04/29/25 Last Updated by: Fartun Londono CNM 04/29 efw: 16 %, 35W3, EDC: 05/30/25. fern:wnl/VTX Visit Date: 03/31/25 Last Updated by: Fartun Londono CNM 03/31/25: 3rd tri lab wnl. O+/ABS- Visit Date: 01/02/25 Last Updated by: Fartun Londono CNM 34 yo . no dates. sono: 12/11/24: 15w5. EDC: 05/30/25. OB panel: O+,abs-, RPR::NR, rub imm, HBSAG-,HIV-,HC-, GX/CT-, , A1: 5.5 Visit Date: 12/05/24 Last Updated by: Fartun Londono CNM 12/04: CF+/SMA-, NIPT:neg/male Visit Date: 11/13/24 Last Updated by: Fartun Londono CNM 33 yo no dates/irreg menses Office Procedures OBC Clinic LOC & Office Proc's Nursing/Assessment Patient Status: Established Patient OB Clinic Nursing Assessment: Medication Reconciliation, Update PMH in EMR and Vital Signs OB Clinic Coordination of Care: Complex Care and Chronic Disease 1-5, Consent,records obtained, informed consent, Education Simp Pt/Fam, 1 Ins Authorization, Lab and Imaging orders, Results/Orders obtained and Staff clarify orders Special Needs: Heart tones Established Patient Charge Established Patient Point Assignment: 150 Established Patient Point Charge: EP Level 4 (120-155) Assessment & Plan Diagnosis / Problem List (1) Encounter for supervision of high risk in third trimester, antepartum: Status: Acute Plan GBS today. Reviewed kick count twice a day. Discussed labor precautions. Return in 2 weeks OB check Additional Plan Follow Up: 2 Weeks (OBC)
== END 2025-04-29 09:00 | disposition home or self-care (01) ==
LOC: HODSOBC 08:18
PROVIDERS: Supervising Provider Advanced Practice Midwife; Visit Provider Advanced Practice Midwife
DX: O09.93 Supervision of high risk pregnancy, unspecified, third trimester (principal); Z3A.35 35 weeks gestation of pregnancy; Z36.85 Encounter for antenatal screening for Streptococcus B; Z91.030 Bee allergy status; Z91.018 Allergy to other foods
CPT/HCPCS: 99214; G0463

== ENCOUNTER 2025-05-22 06:26 | Inpatient (IN) | payer MEDICAID, SELFPAY ==
[2025-05-22] VITALS (24 sets, daily range): BP systolic 111–150; BP diastolic 58–90; PULSE 52–77; RESP 16–100; TEMP 36.3–37.4; O2SAT 97–98; BMI 28.6
[2025-05-22 07:06] LABS: Collection Type, Urine Clean Catch
[2025-05-22 07:11] LABS: Basophils # (Auto) 0.1 Thou/mm3 (0.0-0.2); Basophils % (Auto) 1 % (0-2.5); Eosinophils # (Auto) 0.1 Thou/mm3 (0.0-0.5); Eosinophils % (Auto) 2 % (0-10); Hematocrit 34.6 % (36.0-46.0); Hemoglobin 11.4 g/dL (12.0-16.0); Immature Granulocytes Auto 0.04 Thou/mm3 (0.00-0.00); Lymphocytes # (Auto) 2.1 Thou/mm3 (1.0-4.8); Lymphocytes % (Auto) 22 % (10-50); Mean Corpuscular HGB Conc 32.9 g/dl (31.0-37.0); Mean Corpuscular Hemoglobin 27.3 pg (25.0-35.0); Mean Corpuscular Volume 83 fL (80-100); Monocytes # (Auto) 0.8 Thou/mm3 (0.0-0.8); Monocytes % (Auto) 9 % (0-12); Neutrophils # (Auto) 6.2 Thou/mm3 (1.8-7.7); Neutrophils % (Auto) 66 % (37-80); Nucleated Red Blood Cell # 0.00 Thou/mm3 (0.00-0.00); Nucleated Red Blood Cell % 0 /100 WBC (0); Platelet Count 212 Thou/mm3 (140-440); RDW Standard Deviation 39.8 fL (36.4-46.3); Red Blood Count 4.17 Miln/mm3 (4.00-5.20); White Blood Count 9.4 Thou/mm3 (3.6-11.0)
[2025-05-22 07:43] LABS: Alanine Aminotransferase < 7 U/L (10-49); Albumin, Serum 3.9 gm/dL (3.5-5.0); Albumin/Globulin Ratio 1.3 (1.2-2.2); Alkaline Phosphatase 236 U/L (46-116); Anion Gap 10 (7-16); Aspartate Amino Transferase 16 U/L (0-34); BUN/Creatinine Ratio 11 Ratio (12-20); Bilirubin,Total 0.3 mg/dL (0.3-1.2); Blood Urea Nitrogen 8 mg/dL (9-23); Calcium 8.5 mg/dL (8.3-10.6); Calcium (Corrected) 8.6 mg/dL (8.5-10.1); Carbon Dioxide 22.0 mMol/L (20.0-31.0); Chloride 108 mMol/L (98-107); Creatinine (Component) 0.7 mg/dL (0.6-1.3); Estimated Creatinine Clearance 112.9 mL/min (>60); Globulin 3.1 gm/dL (2.3-3.5); Glucose 83 mg/dL (74-106); Osmolality,Calculated 276 (275-295); Potassium 3.9 mMol/L (3.4-5.1); Sodium 140 mMol/L (136-145); Total Protein 7.0 gm/dL (5.7-8.2); Uric Acid 5.8 mg/dL (3.1-7.8); eGFR > 60 See Note
--- NOTE | 2025-05-22 07:47 | PD.LDHP ---
Documentation for date of: 05/22/25 OB Labor/Induct. HPI History of Present Illness : 7 Para: 4 Term pregnancies: 4 pregnancies: 0 Living children: 3 History of Abortions: Spontaneous and Elective: 2 History of Vaginal deliveries: 4 History of sections: No History of : No Date of last menstrual period: 09/02/24 WATSON: 05/30/25 Gestational Age (weeks): 38 Gestational Age (days): 6 Gestational age based on last menstrual period: 37 History of present illness: 34 Years old ?at gestational age38.6 based on last menstrual period and US . No complaints so far care Fartun wiggins medical problems none during PNC / she had elevated BP on arrival and is 4 / 80 /-3 and intact Bag of membranes 34 yo dates. sono: 12/11/24: 15w5. EDC: 05/30/25. OB panel: O+,abs-, RPR::NR, rub imm, HBSAG-,HIV-,HC-, GX/CT-, , A1: 5.5 NIPT male CF positive /SMA negative per notes History of Present Dating criteria: LMP confirmed by 2nd trimester US Adequate Care: Yes Ultrasounds: normal mid trimester US Obstetrical complications: none Medical complications: none Labs Maternal Blood Type: O Pos Labs: Positive: Rubella Titre, Negative: RPR, Hepatitis B, HIV, Chlamydia, Gonorrhea and Group Beta Strep and Unknown: Herpes Type 1, Herpes Type 2 and Covid-19 Review of Systems Review of Systems Systems Reviewed: All systems reviewed, normal except as documented Past Medical History Surgical History SURGICAL: Negative Section Meds Home Medications and Allergies Home Medications ?Medication ?Instructions ?Recorded ?Confirmed ?Type prenat.vits,giorgi,lkp-qylz-fvkra 1 tab PO QDAY 02/15/18 05/22/25 History ( Vitamin tablet) Allergies Allergy/AdvReac Type Severity Reaction Status Date / Time guava Allergy Severe Vomiting Verified 05/22/25 07:23 bee pollen Allergy Verified 05/22/25 07:23 OB Exam Physical Exam Vital signs: Temp Pulse Resp BP O2 Del Method 97.4 F 60 18 134/78 H Room Air 05/22/25 07:33 05/22/25 07:39 05/22/25 07:33 05/22/25 07:39 05/22/25 07:33 Narrative: Size equal to dates uterus non tender regular / contractions non tender FHR is category 1 feta presentation is vertex OB Results Labs 05/22/25 06:50 05/22/25 06:50 Labs: BMP 05/22/25 06:50 Sodium 140 Potassium 3.9 Chloride 108 H Carbon Dioxide 22.0 BUN 8 L Creatinine 0.7 Glucose 83 Calcium 8.5 Liver Function 05/22/25 Range/Units 06:50 Total Bilirubin 0.3 (0.3-1.2) mg/dL AST 16 (0-34) U/L ALT < 7 L (10-49) U/L Alkaline Phosphatase 236 H (46-116) U/L Albumin 3.9 (3.5-5.0) gm/dL OB Assessment & Plan Assessment and Plan (1) Normal labor and delivery: Status: Acute (2) 38 to 41 weeks gestation of : Status: Acute (3) Elevated BP reading w/ no diagnosis of HTN: Status: Acute Additional Plan Induction method: none Plan: anticipate NVD Additional Plan Comment: signed out to Dr Kerr / GBS checking for results / initial elevated BP/ PIH labs are pending / repeat BP is better
[2025-05-22 07:50] LABS: Syphilis Nonreactive (Nonreactive)
[2025-05-22 07:51] LABS: Bacteria,Urine Rare; Bilirubin,Urine Negative (Negative); Blood,Urine 3+ (Negative); Color,Urine Yellow (Lt Yel-Yel); Creatinine,Random Urine 155 mg/dL (30-125); Glucose, Urine Negative (Negative); Ketones,Urine Negative (Negative); Leukocyte Esterase,Urine Positive (Negative); Nitrite,Urine Negative (Negative); PH,Urine 5.5 (5.0-7.0); Protein Total, Random Urine 27 mg/dL (1-14); Protein,Urine Negative (Neg - Trace); RBC,Urine 22 /hpf (0-3); Specific Gravity,Urine 1.020 (1.001-1.035); Squamous Epithelial Cell,Urine 3 /hpf (0-5); Urobilinogen,Urine Negative mg/dL (0.0-1.0); WBC,Urine 31 /hpf (0-5)
[2025-05-22 08:05] LABS: Clarity,Urine Hazy (Clear/Hazy)
[2025-05-22] MEDS: OXYTOCIN in NS 20 units 20 UNIT/1,000 ML BAG 125 UNIT IV (08:56)
[2025-05-22 08:59] LABS: LDH (Lactate Dehydrogenase) 183 U/L (120-246)
[2025-05-22 09:04] LABS: Fibrinogen 417 mg/dL (175-375); INR 0.9 (0.9-1.3); Partial Thromboplastin Time 26.8 Seconds (22.0-36.0); Prothrombin Time 9.5 Seconds (9.0-12.2)
[2025-05-22] MEDS: BENZO/LANO/ALOE (Dermoplast) 60 GM CAN 1 SPRAY TOP (09:04)
--- NOTE | 2025-05-22 09:48 | PD.LDDELS ---
Data (Alvarez) Data Hx Section: No : 7 Term: 4 : 0 Livin Abortions: Spontaneous & Theraputic: 2 Delivery Data (Alvarez) Labor Data Initiation of labor: Spontaneous Induction/Augmentation Agent: None ROM date: 05/22/25 ROM time: 08:04 Amniotic membrane rupture type: Artificial Amniotic fluid description: Clear Delivery Data Onset of labor date: 05/22/25 Onset of labor time: 03:00 Complete dilation date: 05/22/25 Complete dilation time: 08:50 delivery date: 05/22/25 delivery time: 08:56 Placenta delivery date: 05/22/25 Placenta delivery time: 08:59 Stage 1 total time: Labor - Stage 1 Duration 5 hours and 50 minutes Delivered by: Cirilo Delivery nurse: Briana Neworn nurse: Shiva Permastone Applicator at delivery: No Support person(s) at delivery: FOB Other staff at delivery: Cyn Hammer licensed dispensing optician Method Delivery method: Normal Vaginal Delivery Presentation: Vertex Anesthesia Type Anesthesia Type: None Placenta Placenta delivery description: Spontaneous Cord blood sent to lab: Yes cord blood collection: Cord Blood Type Episiotomy Episiotomy description: None Umbilical Cord cord description: 3 Vessels Data (Alvarez) Data order: 1 Orlando's gender: Male Identification band number: [id number] 1 minute: 9 5 minutes: 9
[2025-05-23 03:42] VITALS: BP 111/52; PULSE 62; RESP 17; TEMP 36.8; O2SAT 97
[2025-05-23 05:39] LABS: Basophils # (Auto) 0.1 Thou/mm3 (0.0-0.2); Basophils % (Auto) 1 % (0-2.5); Eosinophils # (Auto) 0.0 Thou/mm3 (0.0-0.5); Eosinophils % (Auto) 1 % (0-10); Hematocrit 31.3 % (36.0-46.0); Hemoglobin 10.1 g/dL (12.0-16.0); Immature Granulocytes Auto 0.02 Thou/mm3 (0.00-0.00); Lymphocytes # (Auto) 1.7 Thou/mm3 (1.0-4.8); Lymphocytes % (Auto) 23 % (10-50); Mean Corpuscular HGB Conc 32.3 g/dl (31.0-37.0); Mean Corpuscular Hemoglobin 27.3 pg (25.0-35.0); Mean Corpuscular Volume 85 fL (80-100); Monocytes # (Auto) 0.7 Thou/mm3 (0.0-0.8); Monocytes % (Auto) 9 % (0-12); Neutrophils # (Auto) 4.8 Thou/mm3 (1.8-7.7); Neutrophils % (Auto) 66 % (37-80); Nucleated Red Blood Cell # 0.00 Thou/mm3 (0.00-0.00); Nucleated Red Blood Cell % 0 /100 WBC (0); Platelet Count 169 Thou/mm3 (140-440); RDW Standard Deviation 41.2 fL (36.4-46.3); Red Blood Count 3.70 Miln/mm3 (4.00-5.20); White Blood Count 7.3 Thou/mm3 (3.6-11.0)
[2025-05-23 07:30] VITALS: BP 109/52; PULSE 60; RESP 18; TEMP 36.6; O2SAT 99
[2025-05-23] MEDS: DOCUSATE SOD 100 MG CAPSULE PO (08:17)
--- NOTE | 2025-05-23 08:33 | ESPR_ITS ---
Subjective Subjective Interval history: The patient is a 34-year-old G7 now P5025 day #1 status post vaginal delivery yesterday around 9:00 in the morning. This morning the patient is resting comfortably. She is exclusively breast-feeding. She is ambulating, voiding, tolerating a general diet, and passing flatus. She states her bleeding is minimal. She would like to go home. Exam Vital Signs Temp Pulse Resp BP Pulse Ox O2 Del Method 97.9 F 60 18 109/52 L 99 Room Air 05/23/25 07:30 05/23/25 07:30 05/23/25 07:30 05/23/25 07:30 05/23/25 07:30 05/23/25 07:30 Narrative Exam Patient is alert and orient x 3 in no apparent distress. Fundus is firm at umbilicus. Extremities show no significant edema or erythema. Objective Labs 05/23/25 04:20 05/22/25 06:50 Labs: Laboratory Results - last 24 hr 05/22/25 05/23/25 06:50 04:20 WBC 7.3 RBC 3.70 L Hgb 10.1 L Hct 31.3 L MCV 85 MCH 27.3 MCHC 32.3 RDW Std Deviation 41.2 Plt Count 169 D Neut % (Auto) 66 Lymph % (Auto) 23 [place] % (Auto) 9 Eos % (Auto) 1 Baso % (Auto) 1 Neut # (Auto) 4.8 Lymph # (Auto) 1.7 [place] # (Auto) 0.7 Eos # (Auto) 0.0 Baso # (Auto) 0.1 Immature Gran # (Auto) 0.02 H Absolute Nucleated RBC 0.00 Immature Gran % 0 Nucleated RBC % 0 PT 9.5 INR 0.9 APTT 26.8 Fibrinogen 417 H Lactate Dehydrogenase 183 Blood Type O Positive Antibody Screen NEGATIVE Assessment & Plan Problem List (1) care following vaginal delivery: Problem details: Patient is day #1 doing well. Discharge home. Discharge instructions given. Follow-up in the clinic in 4 weeks for a check. Status: Acute Time Spent With Patient Time: Total time spent is greater than 50% in coordination of care (as documented) at patient's floor/unit and/or counseling patient: Time with patient: less than 15 minutes
--- NOTE | 2025-05-23 08:36 | PD.LDDS ---
DS: Providers Provider Date of admission: 05/22/25 06:33 Primary care physician: Physician No Primary/Family Admitting Provider: Denisha Osorio MD Attending Provider on Admission: Jaron Kerr MD Consults: 05/22/25 11:37 Referral Routine Comment: Attending Provider on DC: Edel Pacheco MD ([facility]) Discharging Provider: Edel Pacheco MD ([facility]) Anticipated date of discharge: 05/23/25 DS: Diagnosis Discharge Diagnosis (1) care following vaginal delivery: Status: Acute Assessment & Plan: Discharge home day #1 in stable condition. Problem List Completed Was Problem List Reviewed/Reconciled?: Yes Summary/Hosp Course Brief History: 34 Years old ?at gestational age38.6 based on last menstrual period and US . No complaints so far care Fartun Londono CNM medical problems none during PNC / she had elevated BP on arrival and is 4 / 80 /-3 and intact Bag of membranes 34 yo dates. sono: 12/11/24: 15w5. EDC: 05/30/25. OB panel: O+,abs-, RPR::NR, rub imm, HBSAG-,HIV-,HC-, GX/CT-, , A1: 5.5 NIPT male CF positive /SMA negative per notes. Admitted 05/22/[address] Osorio. Please see history and physical for further details Patient went on to deliver vaginally 05/22/[address] Kerr approximately 9:00 in the morning on the day of admission. She did not have an epidural. Please see delivery note for further details Her post course was uncomplicated. Her predelivery hemoglobin is 11.4. Postdelivery hemoglobin 10.1. By day #1, the patient was ambulating, voiding, passing flatus, tolerating a general diet. She was exclusively breast-feeding. Her lochia was minimal. Pain was controlled with oral Motrin and Tylenol. She was discharged home day #1 in stable condition. Peripartum Data Delivery Method: Normal Vaginal Delivery Episiotomy Description: None Laceration Description: see Delivery Summary complications: none Status at Discharge Functional status at discharge: independent ambulation Overall status at discharge: patient is progressing back to baseline Time Spent with Patient Time attestation: Total time spent providing and/or coordinating discharge services: Time spent: Less than 30 minutes Specific discharge activities: Pelvic rest x 6 weeks. No intercourse tampons douching x 6 weeks. No bathtubs x 6 weeks Exam Vital Signs Temp Pulse Resp BP Pulse Ox O2 Del Method 97.9 F 60 18 109/52 L 99 Room Air 05/23/25 07:30 05/23/25 07:30 05/23/25 07:30 05/23/25 07:30 05/23/25 07:30 05/23/25 07:30 Narrative Exam Patient is alert and orient x 3 in no apparent distress. Fundus is firm. Extremities showed no significant edema or erythema. Discharge Plan Plan Patient Disposition: HOME (Self Care) Disposition Comment: Stable Patient condition on transfer: Stable Prescriptions/Referrals Prescriptions/Med Rec: New docusate sodium [Stool Softener] 100 mg capsule 100 mg PO QDAY 30 Days Qty: 30 0RF ibuprofen 600 mg tablet 600 mg PO Q6H MDD 4 PRN (Reason: fever or pain) 10 Days Qty: 40 0RF Continued Vitamin Tablet 1 tab PO QDAY Referrals: Fartun Londono CNM [Certified Nurse Account Installation Specialist, JAVA DEVELOPER CONSULTANT] No Primary/Family,Physician [Primary Care Provider] Patient/Caregiver Discharge Instructions Discharge Activity: activity as tolerated Other Discharge Activity Instructions:: Schedule an appointment with your ob provider in 4-6 weeks. Pelvic rest x 6 weeks Other Discharge Diet Instructions: General diet as tolerated Education Materials: After a Vaginal , After Delivery Concerns, Breast Care After , : Caring for Yourself, Feel Healthy After Print Language: Maori Activity Restrictions/Additional Instructions: Pelvic rest x 6 weeks. Stand Alone Forms: Shadia Award Info., Patient Portal Info Letter Discharge Order Discharge Orders: Discharge (Routine); Ordered 05/23/25 Ordered By: Edel Pacheco ([facility] Clinic) Planned Discharge Date 05/23/25
== END 2025-05-23 13:15 | disposition home or self-care (01) | DRG 560 ==
LOC: S4SX 09:07 → S4NX 11:30
PROVIDERS: Admitting Provider Obstetrics & Gynecology; Visit Provider Obstetrics & Gynecology
DX: O48.0 Post-term pregnancy (principal); Z37.0 Single live birth; R03.0 Elevated blood-pressure reading, without diagnosis of hypertension; Z3A.41 41 weeks gestation of pregnancy
CPT/HCPCS: 36415; 59409; 80053; 81001; 82570; 83615; 84156; 84550; 85025; 85384; 85610; 85730; 86780; 86850; 86900; 86901; 94762; J2590; S0191; A9270